=== PATIENT | female | born 1935 | race Caucasian/White ===

== ENCOUNTER 2017-09-06 14:02 | Outpatient (CLI) | payer OTHER ==
[~2017-09-06 14:02] MED LIST: CEFTIN500 MG PO
== END 2017-09-06 14:38 | disposition home or self-care (01) ==
LOC: RAD 14:02
DX: M19.041 Primary osteoarthritis, right hand (principal); M19.042 Primary osteoarthritis, left hand; M75.21 Bicipital tendinitis, right shoulder; M19.011 Primary osteoarthritis, right shoulder

== ENCOUNTER 2017-11-12 13:51 | Outpatient (CLI) | payer OTHER | END 2017-11-12 14:03 | disposition home or self-care (01) | LOC: MAMO-SONO 13:51 | DX: N64.4 Mastodynia (principal); D48.61 Neoplasm of uncertain behavior of right breast ==

== ENCOUNTER → 2020-03-10 | Outpatient (CLI) | payer OTHER | END | disposition home or self-care (01) | LOC: OFIC 805 14:30 | PROVIDERS: ATTEND Otolaryngology Otology & Neurotology | DX: J31.0 Chronic rhinitis (principal); H61.23 Impacted cerumen, bilateral ==

== ENCOUNTER 2020-08-11 13:25 | Outpatient (CLI) | payer OTHER | END 2020-08-11 14:28 | disposition home or self-care (01) | LOC: OFIC 805 13:25 | PROVIDERS: ATTEND Otolaryngology Otology & Neurotology | DX: H81.13 Benign paroxysmal vertigo, bilateral (principal); J04.0 Acute laryngitis ==